=== PATIENT | female | born 1980 | race Asian ===

== ENCOUNTER → 2019-03-02 12:09 | Outpatient (CLI) | payer OTHER, SELFPAY ==
[2019-03-02 12:39] LABS: Specimen Label NATERA KIT
[2019-03-02 13:04] LABS: Appearance Urine UA CLEAR; Bilirubin Urine UA NEGATIVE (NEGATIVE); Color Urine UA YELLOW; Glucose Urine UA TRACE g/dL (Negative); Ketones Urine UA TRACE (NEGATIVE); Leukocyte Esterase Urine UA NEGATIVE (NEGATIVE); Nitrite Urine UA NEGATIVE (Negative); Occult Blood Urine UA NEGATIVE (Negative); Protein Urine UA NEGATIVE (Negative); Urobilinogen Urine UA 0.2 E.U./dL (0.2)
[2019-03-02 13:08] LABS: Add Manual Diff / Slide Review NO; Basophils Absolute Auto 0 /uL (0-100); Basophils Percent Auto 0.3 % (0-2); Eosinophils Absolute Auto 0 /uL (0-450); Eosinophils Percent Auto 0.3 % (2-4); Hematocrit 38.4 % (36-46); Hemoglobin 13.2 g/dL (12.0-16.0); Lymphocytes Absolute Auto 1400 /uL (1100-4500); Lymphocytes Percent Auto 20.6 % (25-40); Mean Corpuscular HGB Conc 34.3 % (30-36); Mean Corpuscular Hemoglobin 31.4 PG (26-34); Mean Corpuscular Volume 91.6 fL (80-100); Monocytes Absolute Auto 400 /uL (0-900); Monocytes Percent Auto 5.2 % (3-14); Neutrophils Absolute Auto 5000 /uL (1500-7000); Neutrophils Percent Auto 73.6 % (50-75); Platelet Count 261 X10^3/uL (150-400); Red Blood Cell Count 4.19 X10^6/uL (4.0-5.2); Red Cell Distribution Width 12.1 % (11.6-14.8); White Blood Cell Count 6.8 X10^3/uL (4.5-11.0)
[2019-03-02 15:10] LABS: Hepatitis B Surface Antigen NEGATIVE s/c (NEGATIVE); Rubella Antibody IgG 19.2 IU/mL (>15)
[2019-03-02 15:28] LABS: HIV 1 & 2 Ab/Ag 4th Gen Combo NEGATIVE (NEGATIVE); Hep C Virus Ab w/Reflex Quant NEGATIVE s/c (NEGATIVE)
[2019-03-04 13:51] LABS: RPR Screen Nonreactive (Nonreactive)
== END ==
PROVIDERS: PCP Registered Nurse Women's Health Care, Ambulatory; Visit Provider Obstetrics & Gynecology
DX: O09.519 Supervision of elderly primigravida, unspecified trimester (principal); Z34.01 Encounter for supervision of normal first pregnancy, first trimester
CPT/HCPCS: 36415; 80055; 81003; 86787; 86803; 86850; 86900; 86901; 87086; 87389

== ENCOUNTER → 2019-03-31 08:56 | Outpatient (CLI) | payer OTHER, SELFPAY ==
[2019-04-05 14:15] LABS: AFP, Serum 32.2 ng/mL; Calc Gestational Age 15.1; Est Date Determined by ULTRASOUND; Maternal Weight 130 lbs; Number of Fetuses 1; Prev Pregnancies Down Syndrome NO
== END ==
PROVIDERS: PCP Family Medicine; Visit Provider Obstetrics & Gynecology
DX: Z34.02 Encounter for supervision of normal first pregnancy, second trimester (principal); Z3A.15 15 weeks gestation of pregnancy
CPT/HCPCS: 36415; 82105

== ENCOUNTER → 2019-05-18 14:10 | Outpatient (CLI) | payer OTHER, SELFPAY ==
--- NOTE | 2019-05-18 14:12 | DI.US.S_ITS ---
PROCEDURE: US OB >= 14 WEEKS FETUS INDICATIONS: ANATOMY OUTSIDE/PRIOR DATING DATA: Last menstrual period (LMP): 12/21/18. LMP-based estimated date of delivery (JESSIKA): 09/27/19. First dating scan (date and location): 02/16/19. Estimated date of delivery (JESISKA) from first dating scan: 09/21/19. TECHNIQUE: Real-time scanning was performed of the fetus, with image documentation and biometric measurements. COMPARISON: None. FINDINGS: General: A single living intrauterine gestation is present. Presentation: Breech Placenta: Placental position is posterior fundal, without previa. Amniotic fluid index: 15.9 cm, normal range is 5-24 cm. heart rate: 155 beats per minute. Maternal cervical canal: 3.4 cm long. Normal lower limit is 2.5 cm. biometrics: Biparietal diameter: 21 weeks 1 day Head circumference: 22 weeks 3 days Abdominal circumference: 23 weeks 0 days Femur length: 22 weeks 2 days Estimated gestational age from initial scan: 22 weeks 0 days Composite gestational age from present scan: 22 weeks 3 days Estimated weight and percentile: 518 g; 75th percentile Measurement variability for biometric dating: +/- 7 days from 14 weeks to 15 weeks 6 days gestation, +/- 10 days from 16 weeks to 21 weeks 6 days gestation, +/- 2 weeks from 22 weeks to 27 weeks 6 days gestation, +/- 3 weeks for 28 weeks gestation or later. weight reference: 4500 g or EFW >90/95% is considered macrosomia or large for gestational age. EFW <10% is small for gestational age. EFW 5% or less is considered intra-uterine growth restriction. Anatomic survey: Neuro: Ventricles are non-dilated at less than 10 mm. Cisterna magna is normal at 3-11 mm. Cerebellum is normal in size and morphology. Nuchal skin fold: Normal at less than 6 mm between 14-21 weeks gestational age. Face: Nose and lips, facial profile are normal. Spine: Not well seen due to position. Heart: 4-chambered heart is present, with normal ventricular outflow tracts. Diaphragm: Diaphragm is intact. Stomach: Left-sided stomach is present. Kidneys: No hydronephrosis. Normal is less than 5 mm in 2nd trimester, less than 7 mm in 3rd trimester. Cord: 3-vessel cord has orthotopic insertion. Bladder: Normal in size. Extremities: All 4 extremities identified. IMPRESSION: 1. Single living intrauterine with appropriate interval growth. 2. spine not visualized due to position. Followup recommended. 3. anatomic survey otherwise normal. Dictated by: Taylor Huddleston MD, PhD on 05/18/2019 at 15:42 Approved by: Taylor Huddleston MD, PhD on 05/18/2019 at 15:44
== END ==
PROVIDERS: PCP Family Medicine; Visit Provider Obstetrics & Gynecology
DX: Z34.02 Encounter for supervision of normal first pregnancy, second trimester (principal); Z3A.22 22 weeks gestation of pregnancy
CPT/HCPCS: 76811

== ENCOUNTER → 2019-05-26 08:45 | Outpatient (CLI) | payer OTHER, SELFPAY ==
--- NOTE | 2019-05-26 08:46 | DI.US.S_ITS ---
PROCEDURE: US OB FOLLOW UP INDICATIONS: FOLLOW UP SPINE OUTSIDE/PRIOR DATING DATA: Last menstrual period (LMP): 12/21/14. LMP-based estimated date of delivery (JESSIKA): 09/27/19. First dating scan (date and location): 02/16/19. Estimated date of delivery (JESSIKA) from first dating scan: 09/21/19. TECHNIQUE: Real-time scanning was performed of the fetus, with image documentation and biometric measurements. COMPARISON: [facility], , OB >= 14 WEEKS FETUS, 05/18/2019, 14:23. FINDINGS: General: A single living intrauterine gestation is present. Presentation: Cephalic Placenta: Placental position is posterior Amniotic fluid index: 12.7 cm, normal range is 5-24 cm. heart rate: 160 beats per minute. Maternal cervical canal: 3.6 cm in length. Other: The spine was well visualized on the current examination and is within normal limits. No anatomic abnormalities are evident on the provided images. IMPRESSION: 1. Single intrauterine . 2. The spine is much better visualized on the current examination and noted to be within normal limits. Dictated by: Elmer Messer M.D. on 05/26/2019 at 8:43 Approved by: Elmer Messer M.D. on 05/26/2019 at 8:48
== END ==
PROVIDERS: PCP Family Medicine; Visit Provider Specialist
DX: Z36.2 Encounter for other antenatal screening follow-up (principal); Z3A.20 20 weeks gestation of pregnancy
CPT/HCPCS: 76816

== ENCOUNTER → 2019-06-16 09:35 | Outpatient (CLI) | payer OTHER, SELFPAY ==
[2019-06-16 11:30] LABS: Hematocrit 38.7 % (36-46); Hemoglobin 13.4 g/dL (12.0-16.0)
[2019-06-16 11:48] LABS: GTT (PREG) 1 Hour PP 50gm Dose 131 mg/dL (76-139)
== END ==
PROVIDERS: PCP Family Medicine; Referring Provider Specialist; Visit Provider Specialist
DX: Z34.02 Encounter for supervision of normal first pregnancy, second trimester (principal)
CPT/HCPCS: 36415; 82950; 85014; 85018

== ENCOUNTER → 2019-09-01 09:18 | Outpatient (CLI) | payer OTHER, SELFPAY ==
[2019-09-02 11:07] LABS: Strep Grp B PCR POS for Grp B Strep
== END ==
PROVIDERS: PCP Family Medicine; Visit Provider Specialist
DX: Z34.03 Encounter for supervision of normal first pregnancy, third trimester (principal); Z3A.36 36 weeks gestation of pregnancy
CPT/HCPCS: 87653

== ENCOUNTER 2019-09-26 02:45 | Inpatient (IN) | payer OTHER, SELFPAY ==
[2019-09-26] VITALS (8 sets, daily range): BP systolic 87–147; BP diastolic 41–88; PULSE 80–93; RESP 15–21; TEMP 36.7; O2SAT 100
[2019-09-26] MEDS: LACTATED RINGERS 1,000 ML 100 ML IV ×4 (03:15→23:23)
[2019-09-26] MEDS: PENICILLIN G POTASSIUM 5,000,000 UNIT in DEXTROSE 5% IN WATER 250 ML IV (03:30)
[2019-09-26 03:44] LABS: Add Manual Diff / Slide Review NO; Basophils Absolute Auto 0 /uL (0-100); Basophils Percent Auto 0.2 % (0-2); Eosinophils Absolute Auto 0 /uL (0-450); Eosinophils Percent Auto 0.2 % (2-4); Hematocrit 44.8 % (36-46); Hemoglobin 15.2 g/dL (12.0-16.0); Lymphocytes Absolute Auto 1600 /uL (1100-4500); Lymphocytes Percent Auto 14.5 % (25-40); Mean Corpuscular Hemoglobin 31.7 PG (26-34); Mean Corpuscular Volume 93.2 fL (80-100); Monocytes Absolute Auto 600 /uL (0-900); Monocytes Percent Auto 5.4 % (3-14); Neutrophils Absolute Auto 8800 /uL (1500-7000); Neutrophils Percent Auto 79.7 % (50-75); Platelet Count 238 X10^3/uL (150-400); Red Cell Distribution Width 13.7 % (11.6-14.8); White Blood Cell Count 11.1 X10^3/uL (4.5-11.0)
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
[2019-09-26] MEDS: PENICILLIN G POTASSIUM 3,000,000 UNIT/50 ML FROZ.PIGGY 100 UNIT IV (07:23)
[2019-09-26] MEDS: OXYTOCIN PREMIX 30 UNIT/500 ML PLAST..BAG IV (08:15)
--- NOTE | 2019-09-26 09:47 | P.OP.PRE_ITS ---
Pre-operative Note COVID-19 COVID-19 status: Not tested Interval Note History & Physical reviewed/Exam performed by Physician: Yes Changes to H&P: Yes H&P completed within 30 days and has changed as indicated here:: intoler ance of labor, second stage arrest
--- NOTE | 2019-09-26 09:48 | PM.OBPNLAB ---
Date/Time Date Patient Seen: 09/26/19 Time Patient Seen: 09:48 Pain Control Pain control: epidural Pelvic Exam Dilation (cm): 10 Effacement (%): 100 station: -1 Amniotic membrane status: Ruptured Contractions Monitor mode: External Pitocin rate (mU/min): 4 Contraction frequency (min): 4 Contraction duration (min): 1 Contraction pattern: Regular Contraction intensity: Strong/Firm Status status: Category ll Heart Rate Baseline: 140 Monitor Accelerations: Present Monitor Decelerations: Recurrent Monitor Variability: Moderate Comments: heart tones intermittently reassuring with severe variables with contractions occasional prolonged deceleration. Patient was monitored initially because she was making fast progress. She received an epidural catheter. Her contractions decreased. Pitocin was begun. Patient had no progress with pushing for [address] forceps was unsuccessful. The vacuum was placed for 2 pushes but was unsuccessful at advanced thing the head. Decision was made to proceed with section. Consent form was reviewed with the patient. Risk for infection, bleeding enough to require blood transfusion, damage to internal structures such as bowel, bladder, ureters. Consent form was signed and questions answered. Assessment and Plan Assessment: other (attempt at operative vaginal delivery failed) Plan:
[2019-09-26] MEDS: CEFAZOLIN 2 GM/100 ML FROZ.PIGGY IV (10:26)
--- NOTE | 2019-09-26 10:56 | SUR.OPER ---
Supine on Padded OR bed, head on pillow, safety belt at thigh, arms secured on padded arm boards at <90 degrees abduction. Bump under right buttock. Legs uncrossed with pillow under knees, gel pad to heels, tape over blanket to lower legs.
--- NOTE | 2019-09-26 10:59 | SUR.OPER ---
FHT prior to procedure at 150, at 1041, viable baby boy, cord blood and placenta sent with OB RN
--- NOTE | 2019-09-26 11:33 | PM.OP.1 ---
Operative Date/Time/Diagnoses Date of procedure: 09/26/19 Time of procedure: 11:33 Pre-op diagnosis: intolerance of labor and 2nd stage arrest Post-op diagnosis: same Procedure & Clinicians Procedure: Primary low-transverse section Same procedure as scheduled: Yes Indications: intolerance of labor with 2nd stage arrest. Failed attempt to place forceps and failed vacuum Surgeon: Ambreen Bob [employer] Specialist: Lydia Gomez Click Yes if Unassisted: No Anesthesia Type: Epidural Operative Notes Findings: Normal tubes, ovaries, and uterus. Viable male infant weighing 8 lb 14.9 oz, occiput posterior Cord gases arterial pH 7.201 pCO2 64 PO2 10, venous pH 7.298 pCO2 50 PO2 18 Closure Type: primary Specimen(s): none sent Applied: catheter (Gupta) Estimated Blood Loss (mL): 500 Blood products transfused: none Procedure in detail: The patient was brought to the operating room where she underwent a bolus in her epidural for anesthesia. She was placed in a supine position with a left lateral tilt. A Gupta catheter was in place. Pulsatile stockings were placed and functional throughout the case. 2 g of Ancef were given IV prior to the incision. Warming was in place. The patient was prepped and draped in usual sterile fashion. A low transverse incision was made with a scalpel and the incision was carried down to the fascial layer which was incised transversely with scissors. The midline attachments are superiorly and inferiorly. Some bleeding was controlled Bovie. The rectus muscles were in the midline and the peritoneal incision was made with no damage to internal structures. The peritoneum was incised and superiorly and inferiorly. Bladder blade was placed and a bladder flap was developed and the bladder held away from the lower uterine segment. An incision was made in the uterus with the scalpel and the incision was extended with stretching. The head was elevated out of the abdomen and with fundal pressure the baby was delivered. The infant was bulb suctioned for clear fluid and handed off to the warmer. Cord blood was collected. The placenta delivered spontaneously with traction. The uterus was cleaned with clean laps. The uterine incision was closed in 2 layers of 0 chromic suture the first a running locking layer the second an imbricating layer. The bladder peritoneum was repaired with 2-0 Polysorb suture. The gutters were cleaned of any remaining fluids and ovaries and tubes were observed to be normal. Adequate hemostasis was noted. The perineum was closed with 2-0 Polysorb suture. The fascia layer was closed with 0 Polysorb suture with 2 stitches. The incision was irrigated and adequate hemostasis noted. The incision was closed with interrupted 3-0 Polysorb sutures and then a subcuticular stitch of 4-0 Polysorb suture. Steri-Strips were placed. The uterus was massaged to remove any clots. The patient went to recovery room in good condition. Counts of instruments and sponges were correct. Complications: none Post-operative Condition: stable Disposition: other ( Center) Plan for aftercare: Routine post section
[2019-09-26] MEDS: ONDANSETRON 4 MG/2 ML INJ IV ×2 (11:49→13:06)
[2019-09-26] MEDS: METOCLOPRAMIDE 10 MG/2 ML INJ IV (11:49)
[2019-09-26 12:37] LABS: Cord Venous Blood PCO2 50 (27-56); Cord Venous Blood pH 7.298 (7.25-7.45)
[2019-09-26 12:38] LABS: Cord Venous Blood PO2 18 (17-41); HCO3 Cord Venous Blood 24.5 (12-28); O2 Saturation Cord Venous Bld 22 (14-75)
[2019-09-26 12:40] LABS: Base Excess Cord Arterial Bld -3 (-9.0-2.2); CO2 Cord Arterial Blood 64 (40-71); HCO3 Cord Arterial Blood 25.1 (17-27); PO2 Cord Arterial Blood 10 (6-30)
[2019-09-26 12:41] LABS: Oxygen Sat Cord Arterial Blood 6 (5-59)
--- NOTE | 2019-09-26 17:05 | RT ---
At 1030 this morning, I stood by during this patient's delivery. The baby did not need any intervention by me.
[2019-09-26] MEDS: KETOROLAC 30 MG/ML VIAL IV ×2 (17:41→23:22)
[2019-09-27] MEDS: KETOROLAC 30 MG/ML VIAL IV (05:07)
[2019-09-27 06:44] LABS: Hematocrit 37.4 % (36-46); Hemoglobin 12.6 g/dL (12.0-16.0)
[2019-09-27] MEDS: IBUPROFEN 600 MG TABLET PO ×2 (12:40→19:04)
--- NOTE | 2019-09-27 14:44 | P.PNOB_ITS ---
Subjective - OB Subjective Patient comments: pain well controlled and flatus present [place] baby status: doing well feeding status: exclusively breast feeding Narrative: Patient is ambulatory. She is urinating well. She is passing gas. She is doing well with breast-feeding. Pain is under control. No headaches, scotomata, epigastric pain. Date Patient Seen: 09/27/19 Time Patient Seen: 14:45 Exam Vital Signs (past 8 hours): Blood pressure 118/78, pulse 75, temperature 98.7? Oxygen Delivery Method Room Air Narrative Exam Narrative: Abdomen is soft, nontender. Uterus is firm, at U, nontender. Dressing is clean, dry, intact. Mild lochia. Extremities without edema and nontender. Objective Labs Result Diagrams: 09/27/19 06:24 Labs: Laboratory Results - last 24 hr 09/27/19 06:24 Hgb 12.6 Hct 37.4 Assessment & Plan Assessment and Plan (1) Delivery by section: Status: Acute Current Visit: Yes Plan day: 1 plan OB: routine postop care Comments: Patient is doing well 1 day post section. Routine post section care Time Spent With Patient Time: Total time spent is greater than 50% in coordination of care (as documented) at patient's floor/unit and/or counseling patient: Time with patient: less than 15 minutes
[2019-09-28] MEDS: IBUPROFEN 600 MG TABLET PO ×2 (02:00→08:00)
[2019-09-28 08:00] VITALS: BP 114/55; PULSE 90; RESP 16; TEMP 36.7
[2019-09-28] MEDS: DOCUSATE 250 MG CAPSULE PO (08:00)
--- NOTE | 2019-09-28 10:27 | PM.OBDS.1 ---
Discharge Providers Provider Date of admission: 09/26/19 02:45 Discharge Date: 09/28/19 Primary care physician: Carrie Aquino MD Consults: 09/26/19 03:29 Consult to Anesthesiology Urgent Comment: Consulting Provider: Anesthesiologist Reason for consultation: epidural Has provider been notified: No 09/26/19 11:48 Consult to Dialysis Nurse Routine Comment: Discharge provider: Ambreen Bob MD Summary Hospital Course Date Patient Seen: 09/28/19 Time Patient Seen: 10:27 Procedures: Epidural catheter, primary low-transverse section Hospital Course: Patient arrived on Labor and delivery in active labor. She received an epidural catheter for pain control. Patient had second-stage arrest and underwent a primary low-transverse section. Patient is urinating and ambulating well. She is passing gas. She is only needing Motrin for pain. She denies any headaches, scotomata, epigastric pain. Breast-feeding is going well. Peripartum Data Delivery Method: Section (Primary low-transverse section for second-stage arrest) Procedures: Epidural catheter, primary low-transverse section complications: none [place] 1: Gender: Male Disposition of : home Discharge Diagnosis (1) Delivery by section: Status: Acute Status at Discharge Cognitive/behavioral status at discharge: oriented Functional status at discharge: independent ambulation Overall status at discharge: patient is progressing back to baseline Time Spent with Patient Time attestation: Total time spent providing and/or coordinating discharge services: Time spent: Less than 30 minutes Objective Labs Result Diagrams: 09/27/19 06:24 Exam Vital Signs (past 8 hours): Blood pressure 137/91 with most other blood pressure's 116/75, pulse of 77, temperature 97.9? Oxygen Delivery Method Room Air Narrative Exam Narrative: Abdomen is soft, nontender. Uterus is firm, at U, nontender. Dressing is clean, dry, intact. Mild lochia. Extremities without edema and nontender. Patient's blood type is B positive and she is rubella immune. Discharge Plan Discharge Plan Patient Disposition: Home Discharge orders & Medications Prescriptions: Continued prenat.vits,tobi,[id number] Tablet 1 tab PO DAILY RF: 0 Zyrtec 10 mg capsule 10 mg PO DAILY PRN (Reason: Acid Reflux) RF: 0 (DME) Double Electric breast Pump and Supplies See Rx Instructions .ROUTE .MEDSUPPLY Qty: 1 RF: 0 Follow up/Referrals: Carrie Aquino MD [Primary Care Provider] - Ambreen Bob MD [Physician] - 10/06/19 8:45 am (For Aquacel dressing removal. Check in 15 minutes prior to appointment) Diet/Activity/Treatments Diet: Regular Activity: Nothing in vagina for 4 weeks, do not lift over 20 lb for 6 weeks Skin/Wound/Dressing Care Report to your healthcare provider any signs of infection, such as:: chills, fever and increased pain Dressing: Leave dressing on until appointment Visit Report/Discharge Packet Stand Alone Forms: Discharge: Care Discharge Data Primary Care Provider: Carrie Aquino
== END 2019-09-28 12:00 | disposition home or self-care (01) | DRG 788 ==
PROVIDERS: Admitting Provider Specialist; PCP Family Medicine; Referring Provider Specialist; Visit Provider Specialist
PROC: 10D00Z1 Extraction of Products of Conception, Low, Open Approach (ICD-10-PCS; CPT 59514; principal; 2019-09-26 10:10)
DX: O99.824 Streptococcus B carrier state complicating childbirth (principal); O66.5 Attempted application of vacuum extractor and forceps; Z3A.39 39 weeks gestation of pregnancy; Z37.0 Single live birth; O62.1 Secondary uterine inertia; O76 Abnormality in fetal heart rate and rhythm complicating labor and delivery
CPT/HCPCS: 01967; 01968; 36415; 59050; 59510; 59514; 82803; 85014; 85018; 85025; 86850; 86900; 86901; 87635; G0379; J0690; J1885; J2274; J2405; J2540; J2590; J2765; J3010

== ENCOUNTER → 2019-09-26 13:42 | Outpatient (CLI) | payer OTHER, SELFPAY ==
[2019-09-27 01:53] LABS: COVID19 Sendout Not Detected (Not Detect)
== END ==
PROVIDERS: PCP Family Medicine; Visit Provider Registered Nurse
DX: Z34.90 Encounter for supervision of normal pregnancy, unspecified, unspecified trimester (principal)
CPT/HCPCS: 87635

== ENCOUNTER → 2019-12-21 11:59 | Outpatient (CLI) | payer OTHER, SELFPAY ==
[2019-12-22 09:08] LABS: COVID19 Sendout Not Detected (Not Detect)
== END ==
PROVIDERS: PCP Family Medicine; Visit Provider Physician Assistant
DX: Z11.59 Encounter for screening for other viral diseases (principal)
CPT/HCPCS: 87635

== ENCOUNTER 2019-12-24 08:49 | Day surgery (SDC) | payer OTHER, SELFPAY ==
[2019-12-20 08:09] VITALS: BMI 22.6
--- NOTE | 2019-12-24 | PATH_ITS ---
[facility] Accession Number: [id number] . 01 Material submitted: . PART A: cervix - CERVICAL BIOPSY AT 6 O'CLOCK PART B: cervix - CERVICAL BIOPSY AT 12 O'CLOCK PART C: cervix - CERVICAL BIOPSY AT 9 O'CLOCK PART D: cervix - CERVICAL BIOPSY AT 3 O'CLOCK PART E: cervix - CERVICAL BIOPSY DEEP PART F: endocervix - ENDOCERVICAL CURETTINGS . 02 Diagnosis: A. Cervix, 6 o'clock, Biopsy: Low-grade squamous intraepithelial neoplasia (AUGUSTO-1). No evidence of invasive carcinoma. . B. Cervix, 12 o'clock, Biopsy: High-grade squamous intraepithelial neoplasia (AUGUSTO-3) with extension into endocervical glands. Intraepithelial neoplasia involves lateral endocervical margin. No evidence of invasive carcinoma. . C. Cervix, 9 o'clock, Biopsy: Low-grade squamous intraepithelial neoplasia (AUGUSTO-1). No evidence of invasive carcinoma. . D. Cervix, 3 o'clock, Biopsy: Focal areas of low-grade squamous intraepithelial neoplasia (AUGUSTO-1) in a background of active inflammation. No evidence of invasive carcinoma. . E. Cervix, Deep, Biopsy: High-grade squamous intraepithelial neoplasia (AUGUSTO-3) with endocervical gland involvement, present in two of multiple fragments. No evidence of invasive carcinoma. . F. Endocervical, Curettings: Endocervical mucosa and endometrium with no evidence of neoplasia or hyperplasia. [facility] 12/28/2019 1418 Local . 02 Electronically signed: . Inés Loo MD, Pathologist NPI- [id number] . 01 Gross description: . A. Received in formalin, labeled with the patient's name, MRN, and cervical biopsy at 6 o'clock, is a 2.2 x 1.1 x 0.2 cm, norris-pink, irregular fragment of mucosa. The possible resection margin is inked blue. The specimen is serially sectioned and entirely submitted in cassettes A1-A2. B. Received in formalin, labeled with the patient's name, MRN, and cervical biopsy at 12 o'clock, is a 1.8 x 1.3 x 0.2 cm, norris-pink, irregular fragment of mucosa. The possible resection margin is inked blue. The specimen is serially sectioned and entirely submitted in cassettes B1-B2. C. Received in formalin, labeled with the patient's name, MRN, and cervical biopsy at 9 o'clock, is a 0.7 x 0.7 x 0.2 cm, norris-white fragment of mucosa. The resection margin is inked blue. The specimen is serially sectioned and entirely submitted in cassette C1. D. Received in formalin, labeled with the patient's name, MRN, and cervical biopsy at 3 o'clock, is a 1.7 x 0.7 x 0.2 cm, norris-pink fragment of mucosa. The possible resection margin is inked blue. The specimen is serially sectioned and entirely submitted in cassettes D1 D2. E. Received in formalin, labeled with the patient's name, MRN, and cervical biopsy deep, is a 1.7 x 1.1 x 0.4 cm aggregate of norris brown, irregular fragments of tissue. The specimen is entirely submitted in cassette E1. F. Received in formalin, labeled with the patient's name, MRN, and endocervical curettings, is a 2.7 x 1.7 x 0.1 cm aggregate of norris brown tinged mucus. The specimen is filtered and entirely submitted in cassette F1. ([id number]) /[facility] 12/25/2019 [facility]0 Local . 02 Microscopic: . A. A p16 immunohistochemical stain was performed to characterize cells of interest and is negative for block nuclear and cytoplasmic reactivity, which mitigates against an interpretation of high-grade squamous intraepithelial neoplasia. The control stain shows appropriate reactivity. . * This test was developed and its performance characteristics determined by [facility]. It has not been cleared or approved by the U.S. Food and Drug Administration. The FDA has determined that such clearance or approval is not necessary. This test is used for clinical purposes. It should not be regarded as investigational or for research. . 02 Pathologist provided ICD-10: D06.9 . 02 CPT . 403215, 957112, 557218, 289347, 894329, 645112 Performed at: 01 [facility] [address] [id number] MD Alessandro Gurrola MD Phone: [phone] Performed at: 02 [facility] [address] [place] [id number] MD Inés Loo MD Phone: [phone]
[2019-12-24] MEDS: LACTATED RINGERS 1,000 ML 100 ML IV (09:22)
[2019-12-24 09:24] VITALS: BP 126/78; PULSE 72; RESP 16; TEMP 36.3; O2SAT 100; BMI 22.3
--- NOTE | 2019-12-24 11:01 | PM.PREOP ---
Pre-operative Note COVID-19 COVID-19 status: Negative Result date/Date tested (Pos, Neg/Pending): 12/21/19 Interval Note History & Physical reviewed/Exam performed by Physician: Yes Changes to H&P: No
--- NOTE | 2019-12-24 11:09 | SUR.OPER ---
Lithotomy on padded OR bed, head on pillow, arms secured on padded arm boards at <90 degrees abduction. Legs secured in padded yellow fins stirrups.
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
[2019-12-24] MEDS: BUPIVACAINE 0.5% W/ EPI (PF) 30 ML VIAL INJ (11:38)
[2019-12-24 11:56] VITALS: BP 92/55; PULSE 77; RESP 11; TEMP 36.3; O2SAT 99
--- NOTE | 2019-12-24 11:58 | PM.OP.1 ---
Operative Date/Time/Diagnoses Date of procedure: 12/24/19 Time of procedure: 11:58 Pre-op diagnosis: AUGUSTO 2-3 on colpo directed biopsies Post-op diagnosis: same Procedure & Clinicians Procedure: LEEP procedure Same procedure as scheduled: Yes Indications: AUGUSTO 2-3 on colpo directed biopsies Surgeon: Ambreen Bob Click Yes if Unassisted: Yes Anesthesia Type: General Operative Notes Findings: Normal exam under anesthesia Closure Type: not applicable Specimen(s): other (The entire squamocolumnar junction requiring biopsies at 12, 3, 6, 9, a deep biopsy and ECC) Estimated Blood Loss (mL): 5 Blood products transfused: none Procedure in detail: Patient was brought to the operating room she underwent general. She was placed in low stirrups. A coated bivalve speculum was placed into the vagina. The cervix was injected with 0.5% Marcaine with epinephrine. A coated single-tooth tenaculum was placed on the anterior lip of the cervix. The loop set at 60 W of cutting was used to remove the entire squamocolumnar junction which was done with a 6 and 12:00 oclock. with smaller sections at 3 and 9:00 oclock. A slightly deeper section was taken of the endocervical canal. An ECC was performed. The tissue was cauterized external to the LEEP with ball cautery to extend the treatment zone. Monsel's was placed. The patient went to recovery room in good condition. Counts of instruments and sponges were correct. The tissue was sent for pathology. Complications: none Post-operative Condition: stable Disposition: same day surgery Plan for aftercare: Home when awake and stable
[2019-12-24 12:01] VITALS: BP 103/61; PULSE 79; RESP 18; O2SAT 100
[2019-12-24 12:06] VITALS: BP 123/77; PULSE 81; RESP 12; O2SAT 100
--- NOTE | 2019-12-24 12:06 | SUR.PHASEI ---
1201 aroused spontaneously, denies pain/nausea. HOB elevated, water given. 1205 Oriented, she is talking with the other PACU nurse that she knows from high school.
[2019-12-24 12:11] VITALS: BP 112/77; PULSE 76; RESP 17; O2SAT 100
--- NOTE | 2019-12-24 12:17 | SUR.PHASEI ---
1215 Dr. Bob spoke too the patient. Pt A&O, pleasant, tolerating PO well, continues to deny pain/nausea. Stable.
[2019-12-24 12:25] VITALS: BP 131/78; PULSE 68; RESP 12; TEMP 36.4; O2SAT 100
--- NOTE | 2019-12-24 12:29 | SUR.PHASEII ---
1228 Stable and pleasant, comfortable. IV dc'd and clothes given. Ride is on the way.
== END 2019-12-24 12:37 | disposition home or self-care (01) ==
PROVIDERS: PCP Family Medicine; Referring Provider Family Medicine; Visit Provider Specialist
PROC: 0UBC7ZZ Excision of Cervix, Via Natural or Artificial Opening (ICD-10-PCS; CPT 57522; principal; 2019-12-24 10:15)
DX: D06.0 Carcinoma in situ of endocervix (principal); Z01.818 Encounter for other preprocedural examination
CPT/HCPCS: 57522; J1100; J1885; J2405; J2704; J3010